=== PATIENT | female | born 1995 | race Caucasian/White ===

== ENCOUNTER 2016-09-29 02:02 | Emergency (ER) | payer OTHER ==
--- NOTE | 2016-09-29 02:28 | EDPHY ---
H & P Stated Complaint: neck pain, atraumatic HPI/ROS: HPI CHIEF COMPLAINT: Neck pain HISTORY OF PRESENT ILLNESS: This patient very pleasant 21-year-old female significant medical history for Mary Alice's thyroiditis, takes Synthroid, no other medical problems. She presents emergency room midline cervical spine pain located her C7 region that she describes a burning sensation that radiates to her left shoulder blade. Patient tells me that this started around 7 this morning she noticed when she woke up she does not remember specific injury. She denies tingling in her hands or arm weakness. She tells me she has no headache. She denies fever chest pain or shortness of breath. She has not been ill recently. She states she is able to bend her head for in sinus side however when she goes to bend her head backwards she developed this severe pain. she did go to a chiropractor today however did not have any neck manipulation. She did have x-rays and was told they were okay and that she will need to come back tomorrow for manipulation. She tells me that she did not have any manipulation of her neck because she was too scared to have this done" Past Medical History: Mary Alice's thyroiditis Past Surgical History: No significant surgical history Social History: denies use of drugs alcohol tobacco products Family History: Noncontributory ROS REVIEW OF SYSTEMS: A comprehensive 10 point review of systems is otherwise negative aside from elements mentioned in the history of present illness. Exam Constitutional triage nursing summary reviewed, vital signs reviewed, awake/ alert. Eyes normal conjunctivae and sclera, EOMI, PERRLA. HENT head/neck: Does have focal tenderness to the C7 region, no step-offs, no crepitus, normal hull grinder strength, no carotid bruit, normal inspection, atraumatic, moist mucus membranes, no epistaxis, neck supple/ no meningismus, no raccoon eyes. Respiratory clear to auscultation bilaterally, normal breath sounds, no respiratory distress, no wheezing. Cardiovascular rate normal, regular rhythm, no murmur, no edema, distal pulses normal. Gastrointestinal soft, non-tender, no rebound, no guarding, normal bowel sounds, no distension, no pulsatile mass. Genitourinary no CVA tenderness. Musculoskeletal no midline vertebral tenderness, full range of motion, no calf swelling, no tenderness of extremities, no meningismus, good pulses, neurovascularly intact. Skin pink, warm, & dry, no rash, skin atraumatic. Neurologic awake, alert and oriented x 3, AAOx3, moves all 4 extremities equally, motor intact, sensory intact, CN II-XII intact, normal cerebellar, normal vision, normal speech. Psychiatric normal mood/affect. Heme/Lymph/Immune no lymphadenopathy. Differential Diagnosis: includes but is not limited to in a particular order, compression fracture, annular tear disc, nerve root compression, cervical radiculopathy Medical Decision Making: patient drove here and she would like to drive home she declined any narcotic pain medicine here or muscle relaxants in the emergency room she is okay with Tylenol. She is agreeable for CT scan of her cervical spine to rule out significant bony abnormality. Given her symptoms of burning pain radiating to her left scapula with head movement and focal pain at the C7 region most likely cervical radiculopathy. She does not remember any trauma did not have any neck manipulation today. Re-evaluation: CT scan of the cervical spine without IV contrast The results of the study are negative for acute traumatic injury specifically no compression fracture or significant malalignment The study was read by Dr. France I viewed the images myself on the PACS system. 0401: patient understands return emergency room if she develops any worsening symptoms questions or concerns. She has been prescribed [place], Valium, ibuprofen for pain control. Her CT scan shows nothing acute her symptoms are consistent with cervical radiculopathy I did refer her to Neurosurgery if she continues to have pain she should also follow up with her primary care doctor. Again here she appears well nontoxic no acute distress no meningeal signs no fever no headache. Has burning pain that radiates into her left scapula from her C6-C7 region. No trauma. Source: Patient - Personal History LMP (Females 10-55): 22-28 Days Ago Current Tetanus Diphtheria and Acellular Pertussis (TDAP): Yes - Medical/Surgical History Hx Asthma: No Hx Chronic Respiratory Disease: No Hx Diabetes: No Hx Cardiac Disease: No Hx Renal Disease: No Hx Cirrhosis: No Hx Alcoholism: No Hx HIV/AIDS: No Hx Splenectomy or Spleen Trauma: No Other PMH: hypothyroid - Social History Smoking Status: Never smoked Constitutional: Initial Vital Signs Temperature (C) 36.3 C 09/29/16 02:07 Heart Rate 98 09/29/16 02:07 Respiratory Rate 20 09/29/16 02:07 Blood Pressure 111/85 H 09/29/16 02:07 O2 Sat (%) 97 09/29/16 02:07 O2 Delivery Mode Room Air Allergies/Adverse Reactions: No Known Allergies Allergy (Unverified 09/29/16 02:05) Home Medications: Medication Instructions Recorded Diazepam [Valium 5 MG (*)] 5 mg PO TID PRN #10 tab 09/29/16 Hydrocodone/APAP 5/325 [[place] 1 - 2 tab PO Q4H PRN #10 tab 09/29/16 5/325] Ibuprofen [Motrin (*)] 800 mg PO Q6-8PRN #30 tab 09/29/16 Synthroid 09/29/16 Medical Decision Making - Data Points Medications Given: Discontinued Medications Acetaminophen (Tylenol) 1,000 mg PO EDNOW ONE Stop: 09/29/16 02:39 Last Admin: 09/29/16 02:52 Dose: 1,000 mg Departure - Departure Disposition: Home, Routine, Self-Care Clinical Impression: Cervical radiculopathy Condition: Good Instructions: Cervical Sprain (ED), Cervical Radiculopathy (ED) Additional Instructions: 1. Take ibuprofen for mild pain 2. [place] for severe pain 3.Valium for muscle spasms do not combine the [place] and Valium together these medications can make her sleepy do not drive while taking them. 4. If you continue to have pain please follow up with her primary care doctor or return to the emergency room if you have any worsening symptoms questions or concerns. Referrals: NONE *PRIMARY CARE P,. [Primary Care Provider] - As per Instructions Antoine Schwartz MD [Medical Doctor] - As per Instructions Prescriptions: Ibuprofen [Motrin (*)] 800 mg PO Q6-8PRN #30 tab Hydrocodone/APAP 5/325 [[place] 5/325] 1 - 2 tab PO Q4H PRN #10 tab PRN Reason: Pain, Moderate Diazepam [Valium 5 MG (*)] 5 mg PO TID PRN #10 tab PRN Reason: Spasms
[2016-09-29] MEDS ORDERED: ACETAMINOPHEN 500 MG TAB PO ONE (02:38)
[2016-09-29 04:14] VITALS: BP 102/65; PULSE 70; RESP 18; TEMP 98.4; O2SAT 98
--- NOTE | 2016-09-29 07:55 | CT ---
CT Cervical Spine Without Contrast History: Atraumatic neck pain with left shoulder radiculopathy. Technique: Multislice helical CT through the cervical spine without contrast from the skull base to T1. Soft tissue and bone evaluation is performed. Sagittal and coronal reconstructions are obtained and reviewed. Dose reduction techniques were utilized. Findings: Cervical alignment is anatomic. Disk spaces maintain normal height. No fracture is identified. No obvious soft tissue pathology identified. No source for left radiculopathy identified. Facet joints are normally aligned. Overall mineralization is normal. The craniocervical junction looks normal as does the C1-C2 alignment. Impression: No source for neck pain/left radiculopathy identified. If symptoms persist despite a period of conservative therapy, then consider cervical MRI for further evaluation. Final concordant results discussed with Dr. Kaplan at 3 a.m. General information for patients regarding this examination can be found at [email or web address]. If you have questions or comments about this report, please contact me at (hospital) or [phone] (cell). [id number] MTDD
== END 2016-09-29 04:13 | disposition home or self-care (01) ==
DX: M54.12 Radiculopathy, cervical region (principal)

== ENCOUNTER 2016-10-26 14:24 | Emergency (ER) | payer OTHER ==
[2016-10-26 14:41] VITALS: BP 107/67; PULSE 77; RESP 16; TEMP 98.6; O2SAT 96
== END 2016-10-26 15:41 | disposition left against medical advice (07) ==
DX: Z53.21 Procedure and treatment not carried out due to patient leaving prior to being seen by health care provider (principal)